=== PATIENT | male | born 1970 | race Caucasian/White ===

== ENCOUNTER 2019-09-09 05:55 | Day surgery (SDC) | payer BC, SELFPAY ==
[~2019-09-09] VITALS: Ht 180.3 cm; Wt 106.6 kg
[2019-09-09] MEDS ORDERED: SEVOFLURANE 15 MIN GAS INH ONE (07:45)
[2019-09-09] MEDS ORDERED: MIDAZOLAM HCL 5 MG/ML VIAL (VERSED) IV ONE (07:45)
[2019-09-09] MEDS ORDERED: fentaNYL CITRATE/PF 100 MCG/2 ML AMP IVP ONE (07:45)
[2019-09-09] MEDS ORDERED: SUCCINYLCHOLINE CHLORIDE 20 MG/ML(QUELICIN) IVP ONE (07:45)
[2019-09-09] MEDS ORDERED: EPINEPHrine 1 MG/ML AMP IM ONE (07:45)
[2019-09-09] MEDS ORDERED: PROPOFOL 200MG/ 20ML VIAL (DIPRIVAN) IV ONE (07:45)
[2019-09-09] MEDS ORDERED: NS IRRIG SOLN 1000 ML IR ONE (07:45)
[2019-09-09] MEDS ORDERED: LR 1,000 ML IV.SOLN IV ONE (07:45)
[2019-09-09] MEDS ORDERED: LR 1,000 ML IV SCH (09:05)
[2019-09-09] MEDS ORDERED: ePHEDrine sulfate 50 MG/ML VIAL IVP PRN (09:15)
[2019-09-09] MEDS ORDERED: hydrALAZINE HCL 20 MG/ML VIAL IVP PRN (09:15)
[2019-09-09] MEDS ORDERED: ONDANSETRON HCL 4 MG/2 ML VIAL IVP PRN (09:15)
[2019-09-09] MEDS ORDERED: KETOROLAC TROMETHAMINE 30 MG VIAL IVP PRN (09:15)
[2019-09-09] MEDS ORDERED: METOCLOPRAMIDE HCL 10 MG/2 ML VIAL IVP PRN (09:15)
[2019-09-09] MEDS: HYDROmorphone 1 MG INJ. 1 MG/ML AMPUL IVP PRN ×2 (09:30→09:40)
[2019-09-09] MEDS ORDERED: HYDROmorphone 1 MG INJ. 1 MG/ML AMPUL ONE (09:46)
[2019-09-09 09:55] VITALS: BP_SYST 140
== END 2019-09-09 12:00 | disposition home or self-care (01) ==
LOC: SMU 05:55 → EDSEX 05:55 → SDS 05:55
PROVIDERS: ATTEND Otolaryngology
DX: K13.79 Other lesions of oral mucosa (principal); D37.09 Neoplasm of uncertain behavior of other specified sites of the oral cavity; E66.3 Overweight; I10 Essential (primary) hypertension; Z11.59 Encounter for screening for other viral diseases; Z79.899 Other long term (current) drug therapy
CPT/HCPCS: 42106; 88305; 88341; 88342; 88361; J0171; J0330; J1170; J2704; J7120; U0003; J2250; J3010

== ENCOUNTER 2019-11-11 08:02 | Day surgery (SDC) | payer OTHER ==
[~2019-11-11] VITALS: Ht 180.3 cm; Wt 104.8 kg
[2019-11-11] MEDS ORDERED: LABETALOL 100 MG/ 20ML VIAL IVP PRN (11:30)
[2019-11-11] MEDS ORDERED: hydrALAZINE HCL 20 MG/ML VIAL IVP PRN (11:30)
[2019-11-11] MEDS ORDERED: HYDROmorphone 1 MG INJ. 1 MG/ML AMPUL IVP PRN ×2 (11:30)
[2019-11-11] MEDS ORDERED: MEPERIDINE HCL/PF 25 MG/ML DISP.SYRIN IVP PRN (11:30)
[2019-11-11] MEDS ORDERED: MIDAZOLAM HCL 2 MG/2 ML VIAL (VERSED) IVP PRN (11:30)
[2019-11-11] MEDS ORDERED: METOCLOPRAMIDE HCL 10 MG/2 ML VIAL IVP PRN (11:30)
[2019-11-11] MEDS ORDERED: LR 1,000 ML IV SCH (11:30)
[2019-11-11] MEDS ORDERED: ONDANSETRON HCL 4 MG/2 ML VIAL IVP PRN (11:30)
[2019-11-11] MEDS ORDERED: KETOROLAC TROMETHAMINE 30 MG VIAL IVP ONE (14:00)
[2019-11-11 14:03] VITALS: BP_SYST 121
[2019-11-11] MEDS ORDERED: KETOROLAC TROMETHAMINE 30 MG VIAL ONE (14:13)
== END 2019-11-11 15:20 | disposition home or self-care (01) ==
LOC: SMU 08:02 → SDS 08:02
PROVIDERS: ATTEND Otolaryngology
DX: C10.8 Malignant neoplasm of overlapping sites of oropharynx (principal); J39.2 Other diseases of pharynx; I10 Essential (primary) hypertension; K21.9 Gastro-esophageal reflux disease without esophagitis; E66.9 Obesity, unspecified; D37.09 Neoplasm of uncertain behavior of other specified sites of the oral cavity; Z20.828 Contact with and (suspected) exposure to other viral communicable diseases
CPT/HCPCS: 42106; 88305; 88333; 88341; 88342; 88361; J1885; J3465; U0003